=== PATIENT | male | born 1955 | race Caucasian/White ===

== ENCOUNTER → 2017-11-24 | Outpatient (CLI) | payer OTHER ==
[~2017-11-24] MED LIST: CIPROFLOXACIN500 MG PO; FLEXERIL10 MG PO; MOTRIN800 MG PO; VICODIN 5/500 505 MG PO; ZITHROMAX250 MG PO
[2017-11-24 13:31] LABS: BASO # 0.1 10*3/uL (0.0-0.1); BASO % 0.9 % (0.0-1.0); EOS % 0.2 % (1.0-4.0); HEMATOCRIT 45.8 % (42.0-52.0); HEMOGLOBIN 15.2 g/dl (14.0-18.0); LYMPH # 1.9 10*3/uL (1.3-4.4); LYMPH % 33.3 % (27.0-41.0); MEAN CELL VOLUME 89.5 fl (80.0-94.0); MEAN CORPUSCULAR HGB 29.7 pg (27.0-31.0); MEAN CORPUSCULAR HGB CONC 33.2 g/dl (33.0-37.0); MEAN PLATELET VOLUME 8.7 fl (9.6-12.3); MONO # 0.3 10*3/uL (0.1-1.0); MONO % 5.1 % (3.0-9.0); NEUT # 3.4 10*3/uL (2.3-7.9); NEUT % 60.3 % (47.0-73.0); PLATELET COUNT AUTOMATED 232 10*3/uL (130-400); RED BLOOD COUNT 5.12 10*6/uL (4.50-5.90); RED CELL DISTRI WIDTH 12.9 % (0-14.5); WHITE BLOOD COUNT 5.7 10*3/uL (4.8-10.8)
[2017-11-24 14:00] LABS: ALBUMIN 4.1 gm/dl (3.1-4.5); BUN 19 mg/dl (7-24); CHLORIDE 106 mmol/L (98-107); CREATININE 0.97 mg/dL (0.70-1.30); POTASSIUM 4.1 mmol/L (3.5-5.1); SGOT/AST 19 IU/L (3-35); SGPT/ALT 23 U/L (12-78); SODIUM 140 mmol/L (136-145)
[2017-11-24 14:03] LABS: ALKALINE PHOSPHATASE 70 U/L (45-117); TOTAL PROTEIN 7.3 gm/dL (6.4-8.2)
== END | disposition home or self-care (01) ==
LOC: LAB 12:54
PROVIDERS: Urology
DX: D40.0 Neoplasm of uncertain behavior of prostate (principal); R53.83 Other fatigue

== ENCOUNTER → 2019-05-09 | Outpatient (CLI) | payer MEDICARE | END | disposition home or self-care (01) | LOC: RAD 10:39 | DX: M25.511 Pain in right shoulder (principal) ==

== ENCOUNTER → 2020-07-13 | Outpatient (CLI) | payer MEDICARE | END | disposition home or self-care (01) | LOC: COVID19 10:34 | PROVIDERS: ATTEND Student in an Organized Health Care Education/Training Program | DX: U07.1 COVID-19 (principal) ==

== ENCOUNTER → 2020-07-14 | Outpatient (CLI) | payer MEDICARE | END | disposition home or self-care (01) | LOC: RAD 14:04 | PROVIDERS: ATTEND Nurse Practitioner Family | DX: R05 Cough (principal); R06.02 Shortness of breath; R06.89 Other abnormalities of breathing ==

== ENCOUNTER 2021-02-23 11:57 | Emergency (ER) | payer MEDICARE ==
[~2021-02-23] VITALS: Ht 175.2 cm; Wt 75.7 kg
[2021-02-23 13:06] LABS: BASO % 0.4 % (0.0-1.0); EOS # 0.3 10*3/uL (0.0-0.4); EOS % 3.5 % (1.0-4.0); HEMATOCRIT 43.3 % (42.0-52.0); LYMPH # 1.5 10*3/uL (1.3-4.4); LYMPH % 15.1 % (27.0-41.0); MEAN CELL VOLUME 91.2 fl (80.0-94.0); MEAN CORPUSCULAR HGB 29.5 pg (27.0-31.0); MEAN CORPUSCULAR HGB CONC 32.3 g/dl (33.0-37.0); MEAN PLATELET VOLUME 8.2 fl (9.6-12.3); MONO # 0.5 10*3/uL (0.1-1.0); MONO % 5.2 % (3.0-9.0); NEUT # 7.4 10*3/uL (2.3-7.9); NEUT % 75.3 % (47.0-73.0); PLATELET COUNT AUTOMATED 284 10*3/uL (130-400); RED BLOOD COUNT 4.75 10*6/uL (4.50-5.90); RED CELL DISTRI WIDTH 13.2 % (0-14.5); WHITE BLOOD COUNT 9.9 10*3/uL (4.8-10.8)
[2021-02-23 13:22] LABS: ALBUMIN 3.3 gm/dl (3.1-4.5); ALKALINE PHOSPHATASE 100 U/L (45-117); BUN 17 mg/dl (7-24); CHLORIDE 107 mmol/L (98-107); CREATININE 0.99 mg/dL (0.70-1.30); POTASSIUM 4.4 mmol/L (3.5-5.1); SGOT/AST 23 IU/L (3-35); SGPT/ALT 35 U/L (12-78); SODIUM 139 mmol/L (136-145); TOTAL PROTEIN 7.4 gm/dL (6.4-8.2); TROPONIN I 0.027 ng/ml (<0.045)
== END 2021-02-23 22:33 | disposition home or self-care (01) ==
LOC: ED 11:57
PROVIDERS: Physician Assistant
DX: R06.02 Shortness of breath (principal); Z20.822 Contact with and (suspected) exposure to COVID-19; R05 Cough; Z88.6 Allergy status to analgesic agent; Z79.2 Long term (current) use of antibiotics; Z98.890 Other specified postprocedural states

== ENCOUNTER → 2021-03-13 | Outpatient (CLI) | payer MEDICARE ==
[2021-03-14 10:07] LABS: PROSTATE SPECIFIC AG FREE 0.35 ng/mL; PROSTATE SPECIFIC AG, SERUM 1.2 ng/mL (0.0-4.0)
[2021-03-17 10:08] LABS: TESTOSTERONE FREE, (DIRECT) 3.6 pg/mL (6.6-18.1)
== END | disposition home or self-care (01) ==
LOC: LAB 07:17 → US 07:30
PROVIDERS: ATTEND Internal Medicine
DX: K76.89 Other specified diseases of liver (principal); R35.0 Frequency of micturition

== ENCOUNTER 2024-02-25 21:46 | Emergency (ER) | payer MEDICARE ==
[~2024-02-25] VITALS: Ht 175.2 cm; Wt 73.9 kg
[2024-02-25] MEDS ORDERED: AMOX-CLAV 875-1 EACH PO (22:03)
[2024-02-25] MEDS ORDERED: Rabies Vaccine 1 ML VIAL IM ONE (22:05)
[2024-02-25] MEDS ORDERED: Amoxicillin/Clavulanate Pota 875 MG TAB PO ONE (22:05)
== END 2024-02-25 22:41 | disposition home or self-care (01) ==
LOC: ED 21:46
DX: T63.481A Toxic effect of venom of other arthropod, accidental (unintentional), initial encounter (principal); Z88.6 Allergy status to analgesic agent; Z88.5 Allergy status to narcotic agent; Z98.890 Other specified postprocedural states; Y92.009 Unspecified place in unspecified non-institutional (private) residence as the place of occurrence of the external cause

== ENCOUNTER 2024-02-28 08:47 | Emergency (ER) | payer MEDICARE ==
[~2024-02-28] VITALS: Ht 172.7 cm; Wt 72.6 kg
[~2024-02-28 08:47] MED LIST changes: +AMOX-CLAV 875-1 EACH PO
[2024-02-28] MEDS ORDERED: Rabies Vaccine 1 ML VIAL IM ONE (09:00)
== END 2024-02-28 09:28 | disposition home or self-care (01) ==
LOC: ED 08:47
DX: Z23 Encounter for immunization (principal); Z88.6 Allergy status to analgesic agent; Z88.8 Allergy status to other drugs, medicaments and biological substances; Z98.890 Other specified postprocedural states

== ENCOUNTER 2024-03-03 08:32 | Emergency (ER) | payer MEDICARE ==
[~2024-03-03] VITALS: Ht 175.2 cm; Wt 74.8 kg
[2024-03-03] MEDS ORDERED: Rabies Vaccine 1 ML VIAL IM ONE (08:45)
== END 2024-03-03 09:20 | disposition home or self-care (01) ==
LOC: ED 08:32
DX: Z20.3 Contact with and (suspected) exposure to rabies (principal); Z23 Encounter for immunization; Z88.6 Allergy status to analgesic agent; Z88.8 Allergy status to other drugs, medicaments and biological substances; Z98.890 Other specified postprocedural states

== ENCOUNTER 2024-03-10 06:31 | Emergency (ER) | payer MEDICARE ==
[~2024-03-10] VITALS: Ht 175.2 cm; Wt 74.4 kg
[2024-03-10] MEDS ORDERED: Rabies Vaccine 1 ML VIAL IM ONE (06:50)
== END 2024-03-10 07:18 | disposition home or self-care (01) ==
LOC: ED 06:31
DX: Z23 Encounter for immunization (principal); Z88.6 Allergy status to analgesic agent; Z88.8 Allergy status to other drugs, medicaments and biological substances; Z98.890 Other specified postprocedural states